=== PATIENT | female | born 1965 | race Caucasian/White ===

== ENCOUNTER 2016-04-29 16:30 | Emergency (ER) | payer BC, OTHER ==
[~2016-04-29] VITALS: Ht 157.5 cm; Wt 113.0 kg
[~2016-04-29 16:30] MED LIST: ADVAI100I INH; ADVAI100I PO; ALBU8I INH; CORTIS10A RIGHT EAR
[2016-04-29 16:34] VITALS: BP 159/98; PULSE 91; RESP 16; TEMP 97.9; O2SAT 95
[2016-04-29] MEDS ORDERED: METF500T PO (16:47)
[2016-04-29] MEDS ORDERED: FLUO0.05 TOPICAL (16:52)
--- NOTE | 2016-04-29 16:58 | PD ---
HPI Chief Complaint: Skin Problem Time Seen by Provider: 16:52 Travel History International Travel<30 days: No Contact w/Intl Traveler<30days: No Traveled to known affect area: No History of Present Illness HPI Patient comes in complaining of pruritus and burning sensation in the palmar surface of bilateral hands ongoing for approximately 2 weeks. Patient states that she was seen at urgent care and started on oral steroids that she finished yesterday. Patient reports she was on steroids for 5 days and to improve her symptoms however today symptoms came back. Patient denies any new allergen exposure or previous episodes like this. Patient states she has been under a lot of stress lately at work and thought that could be the cause of the pruritus. Patient denies any respiratory symptoms. Patient has a follow-up appointment with her primary care doctor on Tuesday but did not feel she could wait that long. Patient's also been using [id number] antihistamines with minimal relief of her symptoms. PFSH Past Medical History Arthritis: No Asthma: Yes Cardiovascular Problems: No COPD: Yes Cerebrovascular Accident: No Diabetes: Yes (TYPE 2 ) Patient Takes Glucophage: Yes Diminished Hearing: No Headaches: No Musculoskeletal: No Neurologic: No Respiratory: Yes (ASTHMA) Migraines: No Pneumonia: Yes Seizures: No ?: Not LMP: 04/24/16 Menopausal: Yes : 3 Para: 2 Miscarriage: 1 Tubal Ligation: Yes Past Surgical History Abdominal Surgery: No Section: Yes ( 1984, 1986) Genitourinary Surgery: No Thoracic Surgery: No Social History Alcohol Use: Yes (OCCASIONAL) Tobacco Use: Yes (QUIT 02/27/14, USING [employer]) Substance Use: No Allergies-Medications (Allergen,Severity, Reaction): Coded Allergies: No Known Allergies (Verified , 04/29/16) Reported Meds & Prescriptions Reported Meds & Active Scripts Active Fluocinonide Topical (Fluocinonide) 0.05% Cream 1 Applic TOPICAL BID Apply thin layer to affected area(s) Reported Metformin (Metformin HCl) 500 Mg Tab 500 Mg PO DAILY With a meal Review of Systems Except as stated in HPI: all other systems reviewed are Neg Physical Exam Narrative GENERAL: Well-developed, overly nourished, in no acute distress, and non-ill appearing. SKIN: Warm and dry. Patient with you tiny (approximately 1mm) what appeared to be fluid-filled blisters noted on the palmar surface of bilateral hands consistent with dyshidrotic eczema. There is no signs of cellulitis, abscess, hidradenitis, syphilis, or drainage. HEAD: Atraumatic. Normocephalic. EYES: Pupils equal and round. EOMI. No scleral icterus. No injection or drainage. ENT: No nasal bleeding or discharge. Mucous membranes pink and moist. NECK: Trachea midline. Supple. No nuclear rigidity. CARDIOVASCULAR: Radial pulses 2+ intact bilaterally. Capillary refill less than 2 seconds. RESPIRATORY: No accessory muscle use. No respiratory distress. MUSCULOSKELETAL: No obvious deformities. No clubbing. No cyanosis. No edema. Full range of motion. Wrist: FROM and equal BL with passive flexion, extension, and pronation/supination. Capillary refill less than 2 seconds distal to injury and equal BL. FROM distal to injury and equal BL. Strength distal to injury equal BL. NV intact distal to injury. Flexion and extension of thumb equal BL. Equal strength and movement with abduction/adductions of BL fingers. Woodworker Helper strength equal BL. No tenderness to the anatomical snuffbox. NEUROLOGICAL: Awake and alert. No obvious cranial nerve deficits. Motor grossly within normal limits. Normal speech. PSYCHIATRIC: Appropriate mood and affect; insight and judgment normal. Data Data Last Documented VS Vital Signs Date Time Temp Pulse Resp B/P Pulse Ox O2 Delivery O2 Flow Rate FiO2 04/29/16 16:34 97.9 91 16 159/98 95 MDM Medical Decision Making Medical Screen Exam Complete: Yes Emergency Medical Condition: Yes Differential Diagnosis Hidradenitis, allergic reaction, cellulitis, dyshidrotic eczema, other Narrative Course Patient in no obvious distress upon re-evaluation. Patient was asked if they wanted to speak to my attending, which the patient did not wish to do at this time. Any questions/concerns in reference to patient diagnosis/condition discussed and clarified prior to patient's discharge. Reinforced sheer importance of close follow up with patient's primary physician or primary care clinic. Instructed patient to return to ED immediately, if symptoms return/ worsen. Pt showed understanding of above instructions. Further instructions and recommendations were detailed in discharge paperwork. Pt ambulated without difficulty out of ED at discharge. Diagnosis Primary Impression: Dyshidrotic eczema Patient Instructions: Dyshidrotic Eczema (ED), General Instructions Additional Instructions: Follow-up with your primary care physician on Tuesday as scheduled. Take all medication as prescribed. Return to the emergency department if symptoms get worse. Med/Other Pt SpecificInfo: Prescription(s) given Scripts Fluocinonide Topical 0.05% Cream1 Applic TOPICAL BID #30 GM Ref 0 Apply thin layer to affected area(s) Prov:Jakob Okeefe MD 04/29/16 Disposition: 01 DISCHARGE HOME Condition: Stable [place] Apr 29, 2016 16:58
== END 2016-04-29 17:14 | disposition home or self-care (01) ==
LOC: PHEFT 16:30
DX: L30.1 Dyshidrosis [pompholyx] (principal); J45.909 Unspecified asthma, uncomplicated; J44.9 Chronic obstructive pulmonary disease, unspecified; E11.9 Type 2 diabetes mellitus without complications; Z79.4 Long term (current) use of insulin
CPT/HCPCS: 99282

== ENCOUNTER 2016-04-29 23:06 | Emergency (ER) | payer BC, OTHER ==
[~2016-04-29] VITALS: Ht 157.5 cm; Wt 111.3 kg
[~2016-04-29 23:06] MED LIST changes: +FLUO0.05 TOPICAL; +METF500T PO
[2016-04-29 23:11] VITALS: BP 151/92; PULSE 94; RESP 20; TEMP 98.2; O2SAT 96
== END 2016-04-30 02:35 | disposition left against medical advice (07) ==
LOC: PHED 23:06
DX: S60.455A Superficial foreign body of left ring finger, initial encounter (principal)
CPT/HCPCS: 99281